=== PATIENT | male | born 1940 | race Caucasian/White ===

== ENCOUNTER 2023-11-18 17:38 | Emergency (ER) | payer MEDICARE, OTHER, SELFPAY ==
[2023-11-18 17:40] VITALS: BP 130/74; BMI 18.1
[2023-11-18 18:00] VITALS: BP 102/62
[2023-11-18 18:04] LABS: % Basophils 0.3 % (0-2); % Eosinophils 2.3 % (0-6); % Immature Granulocytes 0.3 % (0-0.5); % Lymphocytes 18.4 % (20.5-51.1); % Monocytes 12.7 % (1.7-9.3); Absolute Eosinophils 0.1 10^3/uL (0-0.7); Absolute Lymphocytes 1.1 10^3/uL (1.2-3.4); Absolute Monocytes 0.8 10^3/uL (0.1-0.6); Absolute Neutrophils 3.9 10^3/uL (1.4-6.5); Hematocrit 28.5 % (39.0-52.0); Hemoglobin 9.9 g/dL (13.0-18.0); Mean Corp Hgb Conc. 34.7 g/dL (33.0-37.0); Mean Corpuscular Hgb 30.6 pg (27.0-31.0); Mean Platelet Volume 9.8 fL (7.4-10.4); Nucleated Red Blood Cells % 0 % (-); Platelet Count 284 10^3/uL (130-400); Red Blood Cell Count 3.24 10^6/uL (4.70-6.10); Red Cell Dist. Width 15.7 % (11.5-14.5)
[2023-11-18 18:57] LABS: ALT (SGPT) 35 U/L (0-50); AST (SGOT) 39 U/L (17-59); Albumin 2.9 g/dl (3.5-5.0); Alkaline Phosphatase 112 U/L (38-126); Blood Urea Nitrogen 26 mg/dl (9-20); Calcium 8.4 mg/dl (8.4-10.2); Carbon Dioxide 26 mmol/L (22-30); Chloride 102 mmol/L (98-107); Estimated Creatinine Clearance 33 ml/min; Glucose 96 mg/dl (70-99); Potassium 3.9 mmol/L (3.5-5.1); Sodium 132 mmol/L (135-145); Total Bilirubin 0.6 mg/dl (0.2-1.3); Total Protein 5.6 g/dl (6.3-8.2); eGFR 55.19
--- NOTE | 2023-11-18 19:10 | ED.GENMED ---
History of Present Illness
General
Chief Complaint: Blood Sugar Problem
Source: patient and records
Exam Limitations: none
Time Seen by Provider: 11/18/23 18:32
Travel History
Have you had any contact with someone who has COVID-19?: No
Do you have any symptoms of coronavirus? Fever > 100 degrees, chills, cough, shortness of breath, sore throat, loss of taste or smell, muscle aches, or headache?: No
History of Present Illness
History of Present Illness:
This is a 83 year old male that comes in with c/o low blood sugar. States that his blood sugar was low today. States that he has not eaten today. States that he does take Insulin. Denies any fever, chills, chest pain, SOB, abd pain, nausea,
vomiting, diarrhea, headache, dizziness, urinary burning.
Past History
Past History
ED Past Medical History: CHF, COPD, HTN, Hypercholesterolemia, IDDM, Hypothyroidism and Other (PNA, PE, Pilonidal cyst)
ED Past Surgical History: Other (Cataracts)
Social History
Tobacco: Smoker
Alcohol: None
Drug: None
Personal:
Living: skilled nursing
Employment: Not employed
Family History
Family History: Other (No significant)
Review of Systems
Review of Systems
All Other Systems: ROS reviewed and negative except as documented in HPI and ROS
Constitutional: Reports no symptoms; Denies fever or chills
EENT: Reports no symptoms
Respiratory: Reports no symptoms; Denies cough or trouble breathing
Cardiac: Reports no symptoms; Denies chest pain
ABD/GI: Reports no symptoms; Denies abdominal pain, nausea, vomiting or diarrhea
: Reports no symptoms; Denies dysuria or urgency
Musculoskeletal: Reports no symptoms
Skin: Reports no symptoms
Neurological: Reports no symptoms; Denies dizzy or headache
Psychiatric: Reports no symptoms
Phy Exam
General Physical Exam
General Presentation: no apparent distress (Weak when trying to sit patient up)
General age: appears stated age
General Skin: warm and dry
General Habitus: elderly
General Mental: alert
General Hydration: dry mucous membranes
ENT Exam
ENT Exam: TM's normal, pharynx normal and neck supple
Eye Exam
Eye Exam: EOMI
Cardiovascular Exam
Cardiovascular Exam: regular rate/rhythm, no edema and normal peripheral pulses
Pulmonary Exam
Pulmonary Exam: lungs clear, no respiratory distress, no rales, chest non tender, no crackles, no rhonchi, no wheezing and no cough
Gastrointestinal Exam
Gastrointestinal Exam: normal bowel sounds, non tender, soft, no organomegaly, no pulsatile mass and non distended
Musculoskeletal Exam
Musculoskeletal Exam: full ROM and no edema
Skin Exam
Skin Exam: normal color, warm/dry, no rash and no petechia
Psychiatric Exam
Psychiatric Exam: normal mood/affect
Course
Orders/Labs/Results
Orders:
Orders
11/18/23 17:53
CMP [Comprehensive Metabolic Panel] Urgent
Complete Blood Count/With Diff Urgent
11/18/23 19:09
0.9% Sodium Chloride 500 ml [Nss] 500 ml IV BOLUS
Nursing to Place Non Medication Order As Directed
Physician Order: Please give water and feed patient
Above order entered?: Yes
11/18/23 19:17
Electrocardiogram (*1) Urgent
Reason for Study: Fatigue / Weakness
EKG- Treatment ONCE
11/18/23 19:22
COVID-19 Antigen Urgent
Source: Nasal Swab
Troponin I Urgent
Abnormal Lab Results
11/18/23 11/18/23
17:53 19:22
RBC 3.24 L 10^6/uL
(4.70-6.10)
Hgb 9.9 L g/dL
(13.0-18.0)
Hct 28.5 L %
(39.0-52.0)
RDW 15.7 H %
(11.5-14.5)
Absolute Lymphs (auto) 1.1 L 10^3/uL
(1.2-3.4)
Absolute Monos (auto) 0.8 H 10^3/uL
(0.1-0.6)
Lymphocytes % 18.4 L %
(20.5-51.1)
Monocytes % 12.7 H %
(1.7-9.3)
Sodium 132 L mmol/L
(135-145)
BUN 26 H mg/dl
(9-20)
Total Protein 5.6 L g/dl
(6.3-8.2)
Albumin 2.9 L g/dl
(3.5-5.0)
SARS-CoV-2 Antigen Positive A
(Negative)
11/18/23 17:53
11/18/23 17:53
H/H low. Sodium slightly low. Dehydration. Total protein low. Albumin low. Troponin 0.015, COVID positive
Vital Signs
Initial and Last Documented VS:
Initial Vital Signs
Pulse Resp Pulse Ox
69 16 95
11/18/23 17:38 11/18/23 17:38 11/18/23 17:38
Last Documented Vital Signs
Temp Pulse Resp BP Pulse Ox
98.0 F 67 20 102/62 98
11/18/23 17:40 11/18/23 18:30 11/18/23 18:30 11/18/23 18:00 11/18/23 18:30
MDM/Problems Addressed
Differential Diagnosis Includes:
Low Blood sugar
MDM/Problems Addressed:
This is a 83 year old male that comes in from [facility] with c/o low blood sugar. States that he has not really eaten today.
Will check labs, Give IV fluids, food and water. Patient seems weak when attempting to sit up in bed. Will check for COVID
Back into see patient. Patient was able to eat Apple sauce here and some sandwich. Explained to patient that he has COVID. Explained that they will have to hold his Insulin if he is not eating. Patient encouraged to try and eat but simple food at
this time would be best. Patient to follow up with the family doctor. Return with any concerns.
Chronic conditions affecting care: DM
Acute Exacerbation and/or Progression of Chronic Illness: DM
*Pulse Oximetry
Patient hypoxic: no
*EKG
Interpreted by ED Provider?: Yes
Heart Rate: 65
Rate: normal
Rhythm: sinus and PVC's
Archer: normal axis
Interval: normal interval
QRS Pattern: low voltage
Ischemia: no ischemia
*Contract Administration Manager Interpretation
Rate: normal
Heart Rate: 65
Rhythm: sinus
*Critical Care Note
Total Time (30-74mins, 75-104mins- exclusive of procedures): Not Applicable
ED Attending Note
-
Portions of this chart may have been created with voice recognition software.� Occasional wrong word or��sound alike� substitutions may have occurred due to the inherent limitations of voice recognition software.
Discharge Plan
Departure
Patient Disposition: [facility]/SNF
Date of Disposition: 11/18/23
Time of Disposition: 20:12
Patient with high blood pressure during this ER visit?: No
Condition: Good
Covid-19: Confirmed COVID-19
Discharge Problem:
COVID
Instructions: COVID-19 (DC)
Prescriptions:
No Action
therapeutic multivitamin Tablet
1 tab PO DAILY
levothyroxine [Synthroid] 175 mcg Tablet
175 mcg PO DAILY
acetaminophen [Tylenol] 325 mg Tablet
650 mg PO Q6H PRN (Reason: fever of 100F or above/mild pain)
omega-3 fatty acids 1,000 mg Capsule
1,000 mg PO DAILY
magnesium hydroxide [Milk of Magnesia] 400 mg/5 mL Suspension
30 ml PO HSPRN PRN (Reason: if no BM x 2 days)
bisacodyl [Dulcolax (bisacodyl)] 10 mg Suppository
10 mg MS DAILY@0600 PRN (Reason: if no BM x 3 days)
ketoconazole 2 % Cream
1 applic TOPICAL BID
Rx Instructions:
11/11/2023, apply to rash topically every day and evening shift.
insulin lispro [Humalog KwikPen Insulin] 100 unit/mL Insulin Pen
0 sliding scale dose SC DIRECTED
Rx Instructions:
11/11/2023, if 70-150 = 0 units; 151-200 = 2 units; 201-250 = 4 units; 251-300 = 6 units; 301-350 = 8 units; 351-400 = 10 units; call MD if BS>400.
Eliquis 5 mg tablet
5 mg PO BID
carvedilol 6.25 mg tablet
6.25 mg PO BID
atorvastatin 20 mg tablet
20 mg PO QPM
pantoprazole 40 mg tablet,delayed release (DR/EC)
40 mg PO DAILY
amoxicillin 500 mg Capsule
500 mg PO TID 8 Days Qty: 24 0RF
insulin glargine 100 unit/mL Solution
9 unit SC HS Qty: 0 0RF
midodrine 5 mg tablet
5 mg PO 0800,1300,1700 Qty: 0 0RF
insulin lispro [Humalog KwikPen Insulin] 100 unit/mL Insulin Pen
2 unit SC AC Qty: 0 0RF
Activity Restrictions/Additional Instructions:
As discussed, patient is positive for COVID. PLEASE HOLD HIS INSULIN IF HE IS NOT EATING. His blood sugar is normal here and he has eaten simple foods. Try simple food such as apple sauce, Soups that are easy to get down. Please increase his water
intake to help with hydration. Follow up with the family doctor. IF YOU HAVE ANY OTHER CONCERNS PLEASE RETURN TO THE EMERGENCY ROOM.
Interventions
Interventions:
*Risk Screen - Suicide Last Done: 11/18/23 17:40
*General Assessment Last Done: 11/18/23 17:40
*Neglect/Abuse Screening Last Done: 11/18/23 17:40
ED- Fall Risk Assessment Last Done: 11/18/23 18:18
*ED COVID-19 Vaccine History Last Done: 11/18/23 17:40
ED- Neurological Assessment Last Done: 11/18/23 17:40
[2023-11-18] MEDS: NSS 500 IV (19:28)
[2023-11-18 19:31] LABS: COVID-19 Antigen Positive (Negative)
[2023-11-18 19:51] LABS: Troponin I 0.015 ng/ml
[2023-11-18 20:00] VITALS: BP 139/74
[2023-11-18 20:50] LABS: Glucose - Point of Care 152 mg/dl (70-99)
[2023-11-18 23:00] VITALS: BP 155/78
[2023-11-19] VITALS: BP 140/79
[2023-11-19 09:09] LABS: Glucose - Point of Care 93 mg/dl (70-99)
== END 2023-11-19 00:15 ==
LOC: EMR 17:38
PROVIDERS: Clinical Nurse Specialist Family Health; Emergency Medicine; EMERGENCY PHYSICIAN Emergency Medicine; FAMILY PHYSICIAN Internal Medicine
DX: U07.1 COVID-19 (principal); E11.36 Type 2 diabetes mellitus with diabetic cataract; I11.0 Hypertensive heart disease with heart failure; I50.9 Heart failure, unspecified; J44.9 Chronic obstructive pulmonary disease, unspecified; E78.00 Pure hypercholesterolemia, unspecified; E03.9 Hypothyroidism, unspecified; E86.0 Dehydration; F17.200 Nicotine dependence, unspecified, uncomplicated
CPT/HCPCS: 99283; 96360; 96361; 80053; 82962; 84484; 85025; 87811; 93005